=== PATIENT | male | born 1975 | race Two or more races ===

== ENCOUNTER 2024-08-26 22:35 | Emergency (ER) | payer OTHER ==
[~2024-08-26] VITALS: Ht 157.5 cm; Wt 85.9 kg
[2024-08-26 23:01] VITALS: BP 132/75; PULSE 73; RESP 17; TEMP 97.8; O2SAT 99
[2024-08-27 01:18] LABS: PLATELET COUNT (AUTO) 136 K/uL (150-450); RED BLOOD CELL COUNT(AUTO) 2.33 MIL/uL (4.50-5.90); RED CELL DISTRIBUTION WIDTH 14.3 % (11.5-14.5); WHITE BLOOD COUNT (AUTO) 6.6 K/uL (4.5-11.0)
[2024-08-27 01:27] LABS: RBC MORPHOLOGY COMMENT ABNORMAL RBC MORPH
[2024-08-27 01:33] LABS: CALCIUM, TOTAL 8.3 mg/dL (8.8-10.5); CREATININE 0.79 mg/dL (0.60-1.30); GLOMERULAR FILTR. RATE CALC > 60 mL/min (>60); GLUCOSE,RANDOM 90 mg/dL (70-110); SODIUM SERUM 139 mmol/L (136-145); UREA NITROGEN, BLOOD 6 mg/dL (7-18)
[2024-08-27 01:37] LABS: ASPARTATE AMINOTRANSFERASE 69.0 U/L (15-37); TOTAL PROTEIN, SERUM 7.5 g/dL (6.4-8.2)
[2024-08-27 01:41] LABS: TROPONIN I-HIGH SENSITIVITY 12 ng/L (<76)
== END 2024-08-27 03:27 | disposition home or self-care (01) ==
LOC: EMS 23:10
DX: K74.69 Other cirrhosis of liver (principal); G89.29 Other chronic pain; R10.9 Unspecified abdominal pain; E11.9 Type 2 diabetes mellitus without complications; F10.90 Alcohol use, unspecified, uncomplicated; Y90.9 Presence of alcohol in blood, level not specified
CPT/HCPCS: 71045; 80048; 80076; 82140; 83690; 84484; 85025; 85610; 85730; 93005; 99285; 36415-L1; 36415-TC